=== PATIENT | male | born 1930 | race Two or more races ===

== ENCOUNTER 2017-12-11 10:07 | Emergency (ER) | payer OTHER ==
[~2017-12-11] VITALS: Ht 170.2 cm; Wt 72.6 kg
[~2017-12-11 10:07] MED LIST: AMOX1TAB12 PO; CARDURA1 MG PO; CATAFLAM50 MG PO; DOLOGEN CAPLET1 TAB PO; LIPITOR20 MG PO; PEPCID20 MG PO; PLAVIX75 MG PO; TOPROL XL50 MG PO; ZESTRIL20 MG PO
== END 2017-12-11 12:42 | disposition home or self-care (01) ==
LOC: ER 10:07
DX: S00.01XA Abrasion of scalp, initial encounter (principal); W26.8XXA Contact with other sharp object(s), not elsewhere classified, initial encounter; Y93.01 Activity, walking, marching and hiking; Y92.018 Other place in single-family (private) house as the place of occurrence of the external cause; Y99.8 Other external cause status

== ENCOUNTER 2018-02-23 16:20 | Emergency (ER) | payer OTHER ==
[~2018-02-23] VITALS: Ht 172.7 cm; Wt 70.3 kg
== END 2018-02-23 20:50 | disposition home or self-care (01) ==
LOC: ER 16:20
DX: S50.12XA Contusion of left forearm, initial encounter (principal); W18.09XA Striking against other object with subsequent fall, initial encounter; Y93.89 Activity, other specified; Y92.488 Other paved roadways as the place of occurrence of the external cause; Y99.8 Other external cause status

== ENCOUNTER 2018-02-25 11:01 | Emergency (ER) | payer OTHER ==
[~2018-02-25] VITALS: Ht 175.3 cm; Wt 72.6 kg
== END 2018-02-25 14:41 | disposition home or self-care (01) ==
LOC: ER 11:01
DX: S50.812D Abrasion of left forearm, subsequent encounter (principal); W18.09XD Striking against other object with subsequent fall, subsequent encounter

== ENCOUNTER → 2018-02-27 | Emergency (ER) | payer OTHER | END | disposition left against medical advice (07) | LOC: ER 10:35 | DX: Z53.20 Procedure and treatment not carried out because of patient's decision for unspecified reasons (principal) ==

== ENCOUNTER 2018-05-22 11:36 | Emergency (ER) | payer OTHER ==
[~2018-05-22] VITALS: Ht 162.6 cm; Wt 56.2 kg
== END 2018-05-22 13:12 | disposition home or self-care (01) ==
LOC: ER 11:36
DX: S50.12XA Contusion of left forearm, initial encounter (principal); W22.8XXA Striking against or struck by other objects, initial encounter; Y93.89 Activity, other specified; Y92.018 Other place in single-family (private) house as the place of occurrence of the external cause; Y99.8 Other external cause status

== ENCOUNTER → 2018-05-29 | Emergency (ER) | payer OTHER ==
[~2018-05-29] VITALS: Ht 167.6 cm; Wt 63.5 kg
== END | disposition home or self-care (01) ==
LOC: ER 09:58
DX: S70.01XA Contusion of right hip, initial encounter (principal); S50.812A Abrasion of left forearm, initial encounter; S50.811A Abrasion of right forearm, initial encounter; W18.09XA Striking against other object with subsequent fall, initial encounter; Y93.89 Activity, other specified; Y92.488 Other paved roadways as the place of occurrence of the external cause; Y99.8 Other external cause status

== ENCOUNTER → 2018-06-14 | Emergency (ER) | payer OTHER ==
[~2018-06-14] VITALS: Ht 170.2 cm; Wt 68.0 kg
== END | disposition left against medical advice (07) ==
LOC: ER 14:24
DX: Z53.20 Procedure and treatment not carried out because of patient's decision for unspecified reasons (principal)

== ENCOUNTER → 2018-06-15 | Emergency (ER) | payer OTHER ==
[~2018-06-15] VITALS: Ht 170.2 cm; Wt 68.0 kg
[~2018-06-15] MED LIST changes: +[UNRECOGNIZED DRUG - REMARK]
== END | disposition home or self-care (01) ==
LOC: ER 09:40
DX: H61.23 Impacted cerumen, bilateral (principal)

== ENCOUNTER → 2018-06-17 | Emergency (ER) | payer OTHER ==
[~2018-06-17] VITALS: Ht 172.7 cm; Wt 72.6 kg
== END | disposition home or self-care (01) ==
LOC: ER 09:12 → EDBD 09:12
DX: S50.311A Abrasion of right elbow, initial encounter (principal); S09.8XXA Other specified injuries of head, initial encounter; S19.89XA Other specified injuries of other specified part of neck, initial encounter; R42 Dizziness and giddiness; W18.09XA Striking against other object with subsequent fall, initial encounter; Y93.89 Activity, other specified; Y92.233 Cafeteria of hospital as the place of occurrence of the external cause; Y99.8 Other external cause status

== ENCOUNTER → 2018-06-21 | Emergency (ER) | payer OTHER ==
[~2018-06-21] VITALS: Ht 167.6 cm; Wt 63.5 kg
== END | disposition left against medical advice (07) ==
LOC: ER 10:51
DX: Z53.20 Procedure and treatment not carried out because of patient's decision for unspecified reasons (principal)

== ENCOUNTER 2018-06-26 08:11 | Emergency (ER) | payer OTHER ==
[~2018-06-26] VITALS: Ht 167.6 cm; Wt 49.9 kg
== END 2018-06-26 09:50 | disposition home or self-care (01) ==
LOC: ER 08:11
DX: S51.811A Laceration without foreign body of right forearm, initial encounter (principal); W45.8XXA Other foreign body or object entering through skin, initial encounter; Y93.89 Activity, other specified; Y92.89 Other specified places as the place of occurrence of the external cause; Y99.8 Other external cause status

== ENCOUNTER → 2018-06-29 | Emergency (ER) | payer OTHER ==
[~2018-06-29] VITALS: Ht 165.1 cm; Wt 49.9 kg
== END | disposition left against medical advice (07) ==
LOC: ER 10:17
DX: S50.811A Abrasion of right forearm, initial encounter (principal); W45.8XXA Other foreign body or object entering through skin, initial encounter; Y93.89 Activity, other specified; Y92.89 Other specified places as the place of occurrence of the external cause; Y99.8 Other external cause status

== ENCOUNTER 2018-07-09 08:20 | Emergency (ER) | payer OTHER ==
[~2018-07-09] VITALS: Ht 172.7 cm; Wt 68.5 kg
== END 2018-07-09 13:30 | disposition home or self-care (01) ==
LOC: ER 08:20
DX: S20.212A Contusion of left front wall of thorax, initial encounter (principal); S20.211A Contusion of right front wall of thorax, initial encounter; S30.0XXA Contusion of lower back and pelvis, initial encounter; W18.09XA Striking against other object with subsequent fall, initial encounter; Y93.89 Activity, other specified; Y92.238 Other place in hospital as the place of occurrence of the external cause; Y99.8 Other external cause status

== ENCOUNTER → 2018-07-11 | Emergency (ER) | payer OTHER ==
[~2018-07-11] VITALS: Ht 165.1 cm; Wt 70.3 kg
== END | disposition home or self-care (01) ==
LOC: ER 11:05
DX: R53.81 Other malaise (principal); Z60.8 Other problems related to social environment

== ENCOUNTER 2018-09-17 11:08 | Outpatient (CLI) | payer OTHER | END 2018-09-17 11:19 | disposition home or self-care (01) | LOC: TOM 11:08 | DX: F01.50 Vascular dementia, unspecified severity, without behavioral disturbance, psychotic disturbance, mood disturbance, and anxiety (principal); G30.1 Alzheimer's disease with late onset ==

== ENCOUNTER 2018-10-05 12:10 | Outpatient (CLI) | payer OTHER | END 2018-10-05 17:20 | disposition home or self-care (01) | LOC: RAD 12:10 | DX: M12.9 Arthropathy, unspecified (principal) ==

== ENCOUNTER 2018-10-19 11:34 | Outpatient (CLI) | payer OTHER | END 2018-10-19 12:00 | disposition home or self-care (01) | LOC: NUCLEAR 11:34 | DX: I87.2 Venous insufficiency (chronic) (peripheral) (principal) ==

== ENCOUNTER 2018-12-14 08:58 | Outpatient (CLI) | payer OTHER | END 2018-12-14 08:59 | disposition home or self-care (01) | LOC: SONOGRAMA 08:58 | DX: R10.9 Unspecified abdominal pain (principal) ==

== ENCOUNTER 2019-05-29 11:04 | Emergency (ER) | payer OTHER ==
[~2019-05-29] VITALS: Ht 160 cm; Wt 52.2 kg
[2019-05-29] MEDS ORDERED: ATORVASTATIN CA20 MG (12:09)
[2019-05-29] MEDS ORDERED: TOPROL XL25 M1 (12:10)
[2019-05-29] MEDS ORDERED: ASPIR 8181 MG (12:10)
[2019-05-29] MEDS ORDERED: ARICEPT10 MG (12:10)
== END 2019-05-29 21:09 | disposition home or self-care (01) ==
LOC: ER 11:04
DX: K52.89 Other specified noninfective gastroenteritis and colitis (principal); E86.0 Dehydration